=== PATIENT | female | born 1945 | race Caucasian/White ===

== ENCOUNTER → 2016-12-31 | Outpatient (CLI) | payer MEDICARE, BC ==
[~2016-12-31] MED LIST: AMOX500T PO; BENZ100 PO; CYCL1TAB29 PO; HYDR-3111 PO; HYDR25TA5 PO; LISI40TA PO; MELO7.5T4 PO; NEXI40CA PO; ROPI1TAB PO; SIMV40TA PO; ZOLP5TAB3 PO
--- NOTE | 2016-12-31 16:45 | EKG ---
Date Performed: 12/31/2016 Time Performed: 12:08:24 PTAGE: 71 years EKG: Sinus rhythm . Possible inferior infarct - age undetermined Low QRS voltages in precordial leads Abnormal ECG NO PREVIOUS TRACING DOCTOR: Allen Herring Interpretating Date/Time 12/31/2016 16:42:20
== END ==
LOC: HCAV 11:58
PROVIDERS: ATTEND Orthopaedic Surgery Sports Medicine
DX: Z01.810 Encounter for preprocedural cardiovascular examination (principal); R94.31 Abnormal electrocardiogram [ECG] [EKG]
CPT/HCPCS: 93005